=== PATIENT | male | born 1975 | race Caucasian/White ===

== ENCOUNTER 2018-07-30 11:26 | Emergency (ER) | payer OTHER, MEDICAID, SELFPAY ==
[2018-07-30 11:45] VITALS: BP 111/72; PULSE 97; RESP 99; TEMP 36.2; O2SAT 100
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
[2018-07-30 14:40] VITALS: BP 142/72; PULSE 96; RESP 16; O2SAT 100
== END 2018-07-30 14:40 | disposition home or self-care (01) ==
PROVIDERS: Emergency Provider Emergency Medicine
DX: S22.31XA Fracture of one rib, right side, initial encounter for closed fracture (principal); V29.9XXA Motorcycle rider (driver) (passenger) injured in unspecified traffic accident, initial encounter
CPT/HCPCS: 71101; 99282; 99283

== ENCOUNTER 2022-07-03 13:35 | Emergency (ER) | payer OTHER, MEDICAID, SELFPAY ==
[2022-07-03 13:37] VITALS: BP 122/69; PULSE 107; RESP 24; TEMP 37.2; O2SAT 96
--- NOTE | 2022-07-03 13:54 | DI.RAD.S_ITS ---
PROCEDURE: XR CHEST 1V INDICATIONS: chest pain TECHNIQUE: One view of the chest was acquired. COMPARISON: [facility], CHEST 2 VIEW, 08/25/2017, 11:14. [facility], CHEST 2 VIEW, 08/16/2017, 10:37. FINDINGS: Surgical changes and devices: None. Lungs and pleura: Low lung volumes. Lungs are clear. No pleural effusions or pneumothorax. Mediastinum: Mediastinal contours appear unchanged. Heart size is normal. Bones and chest wall: No suspicious bony lesions. Overlying soft tissues appear unremarkable. IMPRESSION: No acute cardiopulmonary abnormality. Dictated by: Karson Lorenz M.D. on 07/03/2022 at 14:10 Approved by: Karson Lorenz M.D. on 07/03/2022 at 14:11
[2022-07-03 14:09] LABS: Add Manual Diff / Slide Review NO; Basophils Absolute Auto 0 /uL (0-100); Basophils Percent Auto 0.4 % (0-2); Eosinophils Absolute Auto 0 /uL (0-450); Eosinophils Percent Auto 0.5 % (2-4); Hematocrit 44.4 % (41-53); Hemoglobin 15.4 g/dL (13.5-17.5); Lymphocytes Absolute Auto 300 /uL (1100-4500); Lymphocytes Percent Auto 7.7 % (25-40); Mean Corpuscular HGB Conc 34.7 % (30-36); Mean Corpuscular Hemoglobin 29.5 PG (26-34); Monocytes Absolute Auto 500 /uL (0-900); Monocytes Percent Auto 11.5 % (3-14); Neutrophils Absolute Auto 3500 /uL (1500-7000); Neutrophils Percent Auto 79.9 % (50-75); Platelet Count 145 X10^3/uL (150-400); Red Blood Cell Count 5.22 X10^6/uL (4.5-5.9); Red Cell Distribution Width 13.7 % (11.6-14.8); White Blood Cell Count 4.4 X10^3/uL (4.5-11.0)
[2022-07-03 14:20] LABS: Alanine Aminotransferase 40 IU/L (<50); Albumin 4.3 g/dL (3.5-5.0); Albumin Globulin Ratio 1.2 (1.0-2.8); Alkaline Phosphatase 91 U/L (38-126); Aspartate Aminotransferase 37 IU/L (17-59); BUN Creatinine Ratio 12.2 (6-22); Bilirubin Total 0.8 mg/dL (0.2-1.3); Blood Urea Nitrogen 14 mg/dL (9-20); Calcium 8.5 mg/dL (8.4-10.2); Carbon Dioxide 23 mmol/L (22-32); Chloride 95 mmol/L (98-107); Creatine Kinase 259 U/L (55-170); Estimated Glomerular Filt Rate > 60 mL/min (>60); Globulin 3.5 g/dL (1.7-4.1); Glucose 132 mg/dL (70-100); HEMOLYSIS 24 (0-50); Lipase 87 U/L (23-300); Magnesium 1.6 mg/dL (1.6-2.3); Potassium 4.3 mmol/L (3.4-5.1); Sodium 129 mmol/L (137-145); Total Protein 7.8 g/dL (6.3-8.2)
[2022-07-03 14:31] LABS: Troponin I < 0.012 ng/mL (0.01-0.034)
[2022-07-03 14:34] LABS: COVID19 -Nasal RAPID POSITIVE (Negative)
[2022-07-03 14:35] LABS: CKMB % Relative Index 0.6 % (1.5-5.0); Creatine Kinase MB 1.47 ng/mL (<2.37)
[2022-07-03] MEDS: KETOROLAC 30 MG/ML VIAL 15 MG IV (15:00)
[2022-07-03] MEDS: ACETAMINOPHEN 325 MG TABLET 975 MG PO (15:01)
[2022-07-03] MEDS: diphenhydrAMINE 25 MG TABLET PO (15:01)
--- NOTE | 2022-07-03 15:02 | ED_ITS ---
HPI - Fever <MAYELA Parham - Last Filed: 07/03/22 15:08> General Chief Complaint: Fever Stated Complaint: Severe Back pain/fever/Chills Time Seen by Provider: 07/03/22 14:20 Source: patient Mode of arrival: Ambulatory History of Present Illness HPI Narrative: This is a 46-year-old male presents to the emergency department for low back pain, muscle aches, fever and chills. He states this started last night, he is unvaccinated for COVID, states that he drinks 1-2 alcoholic drinks per day, uses marijuana, denies any other illicit drugs, states that he had chills overnight with fever and sweating. He denies any altered mental status or weakness, denies any recent trauma, denies nausea vomiting or diarrhea. States that he has a sore throat and some congestion, has not taken a COVID test. Related Data Previous Rx's Medication Instructions Recorded gabapentin 300 mg capsule 300 mg PO TID #90 caps 08/20/17 (Neurontin) diazepam 10 mg tablet 10 mg PO Q6HP PRN #15 tabs 08/25/17 docusate sodium 100 mg capsule 100 mg PO BIDP PRN #30 caps 08/25/17 (Colace) naproxen 500 mg tablet 500 mg PO Q12HP PRN #20 tabs 08/25/17 oxycodone 10 mg tablet 10 mg PO Q4HP PRN #15 tabs 08/25/17 hydrocodone 5 mg-acetaminophen 325 1 tab PO Q4H PRN pain #14 tabs 07/30/18 mg tablet Allergies Allergy/AdvReac Type Severity Reaction Status Date / Time doxycycline [DOXYCYCLINE] Allergy Severe RASH Unverified 02/12/18 12:05 gabapentin [GABAPENTIN] Allergy Severe RASH Unverified 02/12/18 12:05 VITAMIN C Allergy Intermediate HIGH FEVERS Uncoded 02/12/18 12:05 Review of Systems <MAYELA Parham - Last Filed: 07/03/22 15:08> Review of Systems Narrative: Review of systems is negative for acute abnormalities unless otherwise noted in HPI Patient History <MAYELA Parham - Last Filed: 07/03/22 15:08> Social History Smoking Status: Current every day smoker Smoking Status: Current every day smoker alcohol intake frequency: 0-2 drinks per day Substance Use Type: marijuana Exam <MAYELA Parham - Last Filed: 07/03/22 15:08> Narrative Exam Narrative: Reviewed vitals signs and nursing notes. General: cooperative, comfortable, in no acute distress, well groomed, skin warm to touch HEENT: symmetrical facial expressions, moist mucous membranes Cardiovascular: regular rate and rhythm, no peripheral edema, warm extremities Respiratory: normal effort, able to speak in complete sentences, without wheezing, stridor, or abnormal breath sounds. No retractions or tachypnea. GI: abdomen soft, nontender to palpation, nondistended, without masses, rebound tenderness or exquisite tenderness with exam. No CVA tenderness bilaterally generalized muscle aches and muscle tension MSK: moves all extremities, neurovascularly intact, no weakness, normal tone Skin: brisk capillary refill, without pallor or erythema Neuro: normal speech and cognition, A&O x3, ambulatory, clear speech Psych: mental status is grossly normal, congruent mood, normal affect, pleasant and cooperative Initial Vital Signs Initial Vital Signs: Vital Signs Temperature 99.0 F 07/03/22 13:37 Pulse Rate 107 H 07/03/22 13:37 Respiratory Rate 24 07/03/22 13:37 Blood Pressure 122/69 07/03/22 13:37 Pulse Oximetry 96 07/03/22 13:37 Oxygen Delivery Method 07/03/22 13:37 <Roopa Avitia DO - Last Filed: 07/07/22 08:53> Initial Vital Signs Initial Vital Signs: Vital Signs Temperature 99.0 F 07/03/22 13:37 Pulse Rate 107 H 07/03/22 13:37 Respiratory Rate 24 07/03/22 13:37 Blood Pressure 122/69 07/03/22 13:37 Pulse Oximetry 96 07/03/22 13:37 Oxygen Delivery Method 07/03/22 13:37 Course <MAYELA Parham - Last Filed: 07/03/22 15:08> Orders Ordered: Discontinued Medications Acetaminophen (Acetaminophen 325 Mg Tablet) 975 mg PO NOW ONE Stop: 07/03/22 14:35 Last Admin: 07/03/22 15:01 Dose: 975 mg Documented By: EB Diphenhydramine HCl (Diphenhydramine 25 Mg Tablet) 25 mg PO NOW ONE Stop: 07/03/22 14:35 Last Admin: 07/03/22 15:01 Dose: 25 mg Documented By: EB Ketorolac Tromethamine (Ketorolac 30 Mg/Ml Vial) 15 mg IV NOW ONE Stop: 07/03/22 14:35 Last Admin: 07/03/22 15:00 Dose: 15 mg Documented By: EB Vital Signs Vital signs: Vital Signs - 8 hr 07/03/22 13:37 Temperature 99.0 F Pulse Rate 107 H Respiratory Rate 24 Blood Pressure 122/69 Pulse Oximetry 96 Oxygen Delivery Method Room Air <Roopa Avitia DO - Last Filed: 07/07/22 08:53> Orders Ordered: Discontinued Medications Acetaminophen (Acetaminophen 325 Mg Tablet) 975 mg PO NOW ONE Stop: 07/03/22 14:35 Last Admin: 07/03/22 15:01 Dose: 975 mg Documented By: EB Diphenhydramine HCl (Diphenhydramine 25 Mg Tablet) 25 mg PO NOW ONE Stop: 07/03/22 14:35 Last Admin: 07/03/22 15:01 Dose: 25 mg Documented By: EB Ketorolac Tromethamine (Ketorolac 30 Mg/Ml Vial) 15 mg IV NOW ONE Stop: 07/03/22 14:35 Last Admin: 07/03/22 15:00 Dose: 15 mg Documented By: EB Vital Signs Vital signs: Vital Signs - 8 hr 07/03/22 13:37 Temperature 99.0 F Pulse Rate 107 H Respiratory Rate 24 Blood Pressure 122/69 Pulse Oximetry 96 Oxygen Delivery Method Room Air MDM - Fever <MAYELA Parham - Last Filed: 07/03/22 15:08> Lab Data Result diagrams: 07/03/22 13:47 07/03/22 13:47 Labs: Lab Results 07/03/22 07/03/22 07/03/22 Range/Units 13:47 13:47 13:47 WBC 4.4 L (4.5-11.0) X10^3/uL RBC 5.22 (4.5-5.9) X10^6/uL Hgb 15.4 (13.5-17.5) g/dL Hct 44.4 (41-53) % MCV 85.0 (80-100) fL MCH 29.5 (26-34) PG MCHC 34.7 (30-36) % RDW 13.7 (11.6-14.8) % Plt Count 145 L (150-400) X10^3/uL Neut % (Auto) 79.9 H (50-75) % Lymph % (Auto) 7.7 L (25-40) % Moody % (Auto) 11.5 (3-14) % Eos % (Auto) 0.5 L (2-4) % Baso % (Auto) 0.4 (0-2) % Neut # (Auto) 3500 (7922-8769) /uL Lymph # (Auto) 300 L (2140-2436) /uL Moody # (Auto) 500 (0-900) /uL Eos # (Auto) 0 (0-450) /uL Baso # (Auto) 0 (0-100) /uL Sodium 129 L (137-145) mmol/L Potassium 4.3 (3.4-5.1) mmol/L Chloride 95 L (98-107) mmol/L Carbon Dioxide 23 (22-32) mmol/L BUN 14 (9-20) mg/dL Creatinine 1.15 (0.66-1.25) mg/dL Estimated GFR > 60 (>60) mL/min BUN/Creatinine Ratio 12.2 (6-22) Glucose 132 H (70-100) mg/dL Calcium 8.5 (8.4-10.2) mg/dL Magnesium 1.6 (1.6-2.3) mg/dL Total Bilirubin 0.8 (0.2-1.3) mg/dL AST 37 (17-59) IU/L ALT 40 (<50) IU/L Alkaline Phosphatase 91 (38-126) U/L Total Creatine Kinase 259 H (55-170) U/L CK-MB (CK-2) 1.47 (<2.37) ng/mL CK-MB (CK-2) Rel Index 0.6 L (1.5-5.0) % Troponin I < 0.012 (0.01-0.034) ng/mL Total Protein 7.8 (6.3-8.2) g/dL Albumin 4.3 (3.5-5.0) g/dL Globulin 3.5 (1.7-4.1) g/dL Albumin/Globulin Ratio 1.2 (1.0-2.8) Lipase 87 (23-300) U/L SARS-CoV-2 (PCR) Positive H (Negative) ECG Data Interpretation: EKG independently reviewed by Dr. Avitia and reveals sinus tachycardia at 118 beats per minute with regular axis and intervals. No STEMI, ST segment changes, arrhythmia, or acute ischemic changes. MDM Narrative Medical decision making narrative: This is a 46-year-old male presents to the emergency department for muscle aches in his low back which he states started last night associated with chills and fever. His COVID PCR tested positive for COVID, patient was tachycardic initially on arrival, had a borderline low-grade temp, tachypnea without hypoxia or abnormal breath sounds. His chest x-ray is negative for acute cardiopulmonary abnormality, lab work does not reveal any leukocytosis, WBC is 4.4 with a low lymphocyte percentage and elevation of his neutrophil count, he is hyponatremic at 01:29 without any focal neuro deficits on exam. Patient ap pears dehydrated, his mucous membranes are moist and patient has a normotensive blood pressure but his heart rate improved after 1 L of normal saline and patient states that he started feeling better. His creatinine is along with his baseline at 1.15, glucose is 132, no elevation in his liver enzymes, total CK is elevated at 259, troponin is less than 0.012 and no other pertinent findings were on exam or workup today. Discussed with patient that his sodium level was low and although he does not have any mental status changes to consume some salty food for the next few days and hydrate with electrolyte fluids. Use Tylenol and ibuprofen as needed for fever and pain, decongestants and over-the- counter antihistamines for symptoms. Patient states understanding. Patient is appropriate and amenable to discharge home. Vital signs are stable on repeat examination is unremarkable. Patient has been informed of results. Patient has been given strict return to ER precautions for any new or worsening symptoms. Patient understands to follow up closely with outpatient providers as neal espinoza. Patient understands plan and agrees to discharge home. All questions and concerns answered at this time. <Roopa Avitia, - Last Filed: 07/07/22 08:53> Lab Data Labs: Lab Results 07/03/22 07/03/22 07/03/22 Range/Units 13:47 13:47 13:47 WBC 4.4 L (4.5-11.0) X10^3/uL RBC 5.22 (4.5-5.9) X10^6/uL Hgb 15.4 (13.5-17.5) g/dL Hct 44.4 (41-53) % MCV 85.0 (80-100) fL MCH 29.5 (26-34) PG MCHC 34.7 (30-36) % RDW 13.7 (11.6-14.8) % Plt Count 145 L (150-400) X10^3/uL Neut % (Auto) 79.9 H (50-75) % Lymph % (Auto) 7.7 L (25-40) % Moody % (Auto) 11.5 (3-14) % Eos % (Auto) 0.5 L (2-4) % Baso % (Auto) 0.4 (0-2) % Neut # (Auto) 3500 (3186-0137) /uL Lymph # (Auto) 300 L (4812-3082) /uL Moody # (Auto) 500 (0-900) /uL Eos # (Auto) 0 (0-450) /uL Baso # (Auto) 0 (0-100) /uL Sodium 129 L (137-145) mmol/L Potassium 4.3 (3.4-5.1) mmol/L Chloride 95 L (98-107) mmol/L Carbon Dioxide 23 (22-32) mmol/L BUN 14 (9-20) mg/dL Creatinine 1.15 (0.66-1.25) mg/dL Estimated GFR > 60 (>60) mL/min BUN/Creatinine Ratio 12.2 (6-22) Glucose 132 H (70-100) mg/dL Calcium 8.5 (8.4-10.2) mg/dL Magnesium 1.6 (1.6-2.3) mg/dL Total Bilirubin 0.8 (0.2-1.3) mg/dL AST 37 (17-59) IU/L ALT 40 (<50) IU/L Alkaline Phosphatase 91 (38-126) U/L Total Creatine Kinase 259 H (55-170) U/L CK-MB (CK-2) 1.47 (<2.37) ng/mL CK-MB (CK-2) Rel Index 0.6 L (1.5-5.0) % Troponin I < 0.012 (0.01-0.034) ng/mL Total Protein 7.8 (6.3-8.2) g/dL Albumin 4.3 (3.5-5.0) g/dL Globulin 3.5 (1.7-4.1) g/dL Albumin/Globulin Ratio 1.2 (1.0-2.8) Lipase 87 (23-300) U/L SARS-CoV-2 (PCR) Positive H (Negative) Discharge Plan Departure Patient Disposition: Home Clinical Impression: COVID-19, Acute hyponatremia Instructions: Dehydration, COVID-19 Activity Restrictions/Additional Instructions: Jay, you tested positive for COVID today and your symptoms sound like they started last night. Please isolate herself for the next 5 days and avoid sharing this with others. Take Tylenol or ibuprofen as needed for pain and fever, please drink 1-2 L of fluid today before going to bed, take a multivitamin daily and try to eat some food. I hope you feel better soon. Your lab work shows that your electrolytes are low, please drink fluids with electrolytes in them and eat some salty food for dinner, your sodium level is l ow as well. Your chest x-ray does not show pneumonia. I hope that you start feeling better soon, please support your symptoms with [id number] medications as needed, return for significant shortness of breath, chest pain, difficulty breathing or wheezing. I hope you feel better soon. Prescriptions: No Action gabapentin [Neurontin] 300 MG capsule 300 mg PO TID Qty: 90 0RF docusate sodium [Colace] 100 MG capsule 100 mg PO BIDP PRNQty: 30 0RF naproxen 500 MG tablet 500 mg PO Q12HP PRNQty: 20 0RF oxycodone 10 MG tablet 10 mg PO Q4HP PRNQty: 15 0RF diazepam 10 MG tablet 10 mg PO Q6HP PRNQty: 15 0RF hydrocodone-acetaminophen 5-325 mg tablet 1 tab PO Q4H PRN (Reason: pain) Qty: 14 0RF Visit Report Forms: Patient Portal/API <Roopa Avitia, DO - Last Filed: 07/07/22 08:53> Cosign ED Attending Cosignature Attestation: I was immediately available in the department for consultation. Documentation has been reviewed.
== END 2022-07-03 15:37 | disposition home or self-care (01) ==
PROVIDERS: Emergency Medicine; Emergency Provider Nurse Practitioner Critical Care Medicine
DX: U07.1 COVID-19 (principal); E87.1 Hypo-osmolality and hyponatremia; R00.0 Tachycardia, unspecified
CPT/HCPCS: 71045; 80053; 82550; 82553; 83690; 83735; 84484; 85025; 87635; 93005; 96374; 99284; C9803; J1885

== ENCOUNTER 2024-05-28 19:17 | Emergency (ER) | payer OTHER, MEDICAID, SELFPAY ==
[2024-05-28] VITALS (7 sets, daily range): BP systolic 111–163; BP diastolic 72–101; PULSE 56–99; RESP 16–18; TEMP 36.9; O2SAT 97–100; BMI 27.9
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
[2024-05-28] MEDS: OXYCODONE/APAP 5/325 PREPACK 1 BOTTLE MISC (21:47)
[2024-05-28] MEDS: BACITRACIN OINT 0.9 GM PCKT 1 APPLIC TOP (21:47)
== END 2024-05-28 21:50 | disposition home or self-care (01) ==
PROVIDERS: Emergency Provider Emergency Medicine
DX: S43.101A Unspecified dislocation of right acromioclavicular joint, initial encounter (principal); S90.511A Abrasion, right ankle, initial encounter; S70.01XA Contusion of right hip, initial encounter; S80.211A Abrasion, right knee, initial encounter; V29.99XA Rider (driver) (passenger) of other motorcycle injured in unspecified traffic accident, initial encounter
CPT/HCPCS: 71046; 73030; 73502; 73552; 73610; 99282; 99284